=== PATIENT | male | born 1995 | race Asian ===

== ENCOUNTER 2017-01-15 05:35 | Emergency (ER) | payer BC ==
[~2017-01-15] VITALS: Ht 177.8 cm; Wt 69.8 kg
[2017-01-15 06:21] VITALS: BP 125/82
== END 2017-01-15 06:21 | disposition home or self-care (01) ==
LOC: ED 05:35
DX: R10.13 Epigastric pain (principal); R19.7 Diarrhea, unspecified; R11.0 Nausea